=== PATIENT | female | born 1980 | race American Indian/Alaskan Native ===

== ENCOUNTER 2017-01-12 13:22 | Outpatient (CLI) | payer MEDICAID ==
[2017-01-12 14:51] VITALS: BP 125/83
[2017-01-12 17:15] LABS: Bilirubin,Urine NEG (Negative); Blood,Urine NEG (Negative); Ketones,Urine NEG (Negative); Leukocyte Esterase,Urine NEG (Negative); Mucus,Urine 1+ /HPF; Nitrite,Urine NEG (Negative); Urobilinogen,Urine < 2.0 mg/dL (<2.0)
== END 2017-01-12 17:18 | disposition home or self-care (01) ==
LOC: TRG 13:22
PROVIDERS: ATTEND Obstetrics & Gynecology
DX: O09.523 Supervision of elderly multigravida, third trimester (principal); Z3A.36 36 weeks gestation of pregnancy
CPT/HCPCS: 59025; 81001

== ENCOUNTER 2018-10-28 18:43 | Emergency (ER) | payer MEDICAID ==
[2018-10-28] MEDS ORDERED: ZOFRAN IV ONE (19:08)
[2018-10-28] MEDS ORDERED: MORPHINE IV ONE ×2 (19:08→19:42)
--- NOTE | 2018-10-28 19:14 | Emergency Department Report ---
ED Lower Extremity HPI - General Chief Complaint: Extremity Injury, Lower Stated Complaint: LFT ANKLE PAIN/EXTREME Time Seen by Provider: 10/28/18 19:04 Source: patient Mode of arrival: Wheelchair Limitations: Physical Limitation - History of Present Illness Initial Comments: Mrs. Liriano is a 37-year-old female who injured her left ankle while playing in a kiddie pool at home. Her son jumped on her back, her ankle then twisted. The ankel was severely deformed. Her son reduced the ankle immediately. Splint was placed by EMS. She has 10/10 pain. Denies pain in foot knee or hip. MD Complaint: ankle injury -: Sudden, This afternoon Injury: Ankle: Left Type of Injury: inversion, eversion, hyperextension, hyperflexion Place: home Severity: severe Severity scale (0 -10): 10 Improves With: immobilization Worsens With: movement Context: walking, jumping Associated Symptoms: swelling, unable to bear weight - Related Data Previous Rx's Medication Instructions Recorded Last Taken Type HYDROcodone/APAP 10-325 [[place] 1 each PO Q6HR PRN #15 tablet 10/28/18 Unknown Rx 10/325] Allergies Allergy/AdvReac Type Severity Reaction Status Date / Time No Known Allergies Allergy Verified 10/28/18 18:44 ED Review of Systems ROS: Stated complaint: LFT ANKLE PAIN/EXTREME Other details as noted in HPI Constitutional: denies: fever, malaise Skin: denies: rash, lesions, change in color, change in hair/nails Neurological: denies: numbness, paresthesias ED Past Medical Hx - Past Medical History Previous Medical History?: Yes Hx Hypertension: No Hx Diabetes: No Hx Deep Vein Thrombosis: No Hx Renal Disease: No Hx Sickle Cell Disease: No Hx Seizures: No Hx Asthma: No Hx HIV: No - Social History Smoking Status: Never Smoker - Medications Home Medications: Home Medications Medication Instructions Recorded Confirmed Last Taken Type HYDROcodone/APAP 10-325 [[place] 1 each PO Q6HR PRN #15 tablet 10/28/18 Unknown Rx 10/325] ED Physical Exam - General Limitations: No Limitations General appearance: alert, in no apparent distress - Head Head exam: Present: atraumatic, normocephalic - Eye Eye exam: Present: normal appearance - ENT ENT exam: Present: mucous membranes moist - Neck Neck exam: Present: normal inspection - Respiratory Respiratory exam: Absent: respiratory distress - Expanded Lower Extremity Exam Left Hip exam: Present: normal inspection, full ROM Upper Leg exam: Present: normal inspection, full ROM Knee exam: Present: normal inspection, full ROM Ankle exam: Present: tenderness, swelling Foot/Toe exam: Present: normal inspection, full ROM Neuro vascular tendon exam: Present: no vascular compromise. Absent: pulse deficit, abnormal cap refill, motor deficit, sensory deficit, tendon deficit, pallor - Neurological Exam Neurological exam: Present: alert, oriented X3 - Psychiatric Psychiatric exam: Present: normal affect, normal mood ED Lower Extremity MDM - Radiology Data Radiology results: report reviewed, image reviewed interpreted by me: Left ankle radiographs 3 views: Displays distal left fibular fracture with widening mortise - Medical Decision Making Mrs. Liriano presents with displaced unstable left fibular fracture closed neurovascular intact. Left posterior splint was applied to the left lower extremity under my supervision. After application the extremity was neurovascularly intact with acceptable alignment. Provided crutches. Prescription for [place]. Referred to orthopedic surgeon. Critical care attestation.: If time is entered above; I have spent that time in minutes in the direct care of this critically ill patient, excluding procedure time. ED Disposition Clinical Impression: Closed fracture of distal end of left fibula Disposition: - TO HOME OR SELFCARE Is pt being admited?: No Does the pt Need Aspirin: No Condition: Stable Instructions: Ankle Fracture (ED), Splint Care (ED) Prescriptions: HYDROcodone/APAP 10-325 [[place] 10/325] 1 each PO Q6HR PRN #15 tablet PRN Reason: Pain Referrals: JOEY PERKINS MD [Staff Physician] - 3-5 Days
--- NOTE | 2018-10-28 20:00 | XRay Report ---
PROCEDURE: XR ANKLE 3+V LT TECHNIQUE: Left ankle 3 views HISTORY: LEFT ANKLE PAIN AND SWELLING COMPARISONS: FINDINGS: There is acute oblique fracture of the lateral malleolus with posterior lateral displacement of the d istal fragment. No additional acute fractures are identified. Remaining joint spaces are unremarkable . IMPRESSION: Acute displaced lateral malleolar fracture. This document is electronically signed by Luis Maldonado MD., Oct 28 2018 07:58:23 PM ET
[2018-10-28] MEDS ORDERED: PERCOCET 5/325 PO ONE (20:32)
[2018-10-28 22:43] VITALS: BP 147/111
== END 2018-10-28 21:05 | disposition home or self-care (01) ==
LOC: ED 18:43
DX: S82.432A Displaced oblique fracture of shaft of left fibula, initial encounter for closed fracture (principal); W50.2XXA Accidental twist by another person, initial encounter; Y93.89 Activity, other specified; Y92.098 Other place in other non-institutional residence as the place of occurrence of the external cause; Y99.8 Other external cause status
CPT/HCPCS: 29515; 73610; 96374; 96375; 99284; J2270; J2405

== ENCOUNTER 2018-11-02 11:07 | Emergency (ER) | payer MEDICAID ==
--- NOTE | 2018-11-02 11:17 | Emergency Department Report ---
Blank Doc - Documentation Documentation: 37 y o female returns to ED s/p reinjuring her fractured ankle after slip and f all while using her crutches this am no loc xr ankle ankle in cast ACC eval
--- NOTE | 2018-11-02 12:07 | XRay Report ---
PROCEDURE: XR ANKLE 3+V LT TECHNIQUE: 3 views of the left ankle. HISTORY: pain/fracture COMPARISON: None FINDINGS: There is an oblique distal fibular fracture with lateral displacement of the distal fibular fragment and the talus. There is diffuse soft tissue swelling about the ankle. IMPRESSION: Laterally displaced Donald B fracture of the distal fibula. This document is electronically signed by Marcie Sena MD., November 02 2018 01:05:47 PM ET
--- NOTE | 2018-11-02 12:21 | Emergency Department Report ---
ED Lower Extremity HPI - General Chief Complaint: Extremity Injury, Lower Stated Complaint: LT ANKLE SEVERE PAIN Time Seen by Provider: 11/02/18 11:15 Source: patient Mode of arrival: Wheelchair Limitations: No Limitations - History of Present Illness Initial Comments: Patient reported that she fell and injured her left ankle and was here on Sunday and had splint placed and they gave her crutches and reported that she follow again today and her ankle and her foot is swollen. Pain is 8/10 throbbing and achy in. Pain is worse with movement and better with rest. She says she has taken Motrin and they have given her some pain medicine but she only has a few left. She says she had to take the splint off because when she fell. Came apart. Patient reports that she has an appointment with orthopedic doctor on the . MD Complaint: ankle injury Injury: Ankle: Left (left ankle) Type of Injury: other (fall) Place: street/outdoors Severity: severe Improves With: NSAID Worsens With: weight bearing, movement, palpation Context: fall Associated Symptoms: swelling, unable to bear weight. denies: snap/pop sensation, numbness, tingling Treatments Prior to Arrival: NSAIDS - Related Data Previous Rx's Medication Instructions Recorded Last Taken Type HYDROcodone/APAP 10-325 [[place]thel 1 each PO Q6HR PRN #15 tablet 10/28/18 Unknown Rx 10/325] Acetaminophen/Codeine [Tylenol 1 tab PO Q6H PRN #14 tab 11/02/18 Unknown Rx /Codeine # 3 tab] Ibuprofen [Motrin] 800 mg PO Q8HR PRN #12 tablet 11/02/18 Unknown Rx Allergies Allergy/AdvReac Type Severity Reaction Status Date / Time No Known Allergies Allergy Verified 11/02/18 11:09 ED Review of Systems ROS: Stated complaint: LT ANKLE SEVERE PAIN Other details as noted in HPI ED Past Medical Hx - Past Medical History Previous Medical History?: No Hx Hypertension: No Hx Diabetes: No Hx Deep Vein Thrombosis: No Hx Renal Disease: No Hx Sickle Cell Disease: No Hx Seizures: No Hx Asthma: No Hx HIV: No - Surgical History Hx Cholecystectomy: Yes - Social History Smoking Status: Never Smoker Substance Use Type: None - Medications Home Medications: Home Medications Medication Instructions Recorded Confirmed Last Taken Type HYDROcodone/APAP 10-325 [Ethel 1 each PO Q6HR PRN #15 tablet 10/28/18 Unknown Rx 10/325] Acetaminophen/Codeine [Tylenol 1 tab PO Q6H PRN #14 tab 11/02/18 Unknown Rx /Codeine # 3 tab] Ibuprofen [Motrin] 800 mg PO Q8HR PRN #12 tablet 11/02/18 Unknown Rx ED Physical Exam - General Limitations: No Limitations - Expanded Lower Extremity Exam Left Hip exam: Present: normal inspection, full ROM. Absent: tenderness Upper Leg exam: Present: normal inspection, full ROM. Absent: tenderness Knee exam: Present: normal inspection, full ROM. Absent: tenderness Lower Leg exam: Present: normal inspection, full ROM. Absent: tenderness Ankle exam: Present: tenderness, swelling. Absent: full ROM (Limited range of motion), abrasion, laceration, ecchymosis, deformity, crepidus, dislocation Foot/Toe exam: Present: full ROM, tenderness, swelling. Absent: abrasion, laceration, ecchymosis, deformity, crepidus, dislocation, erythema, amputation, puncture wound, foreign body, calcaneal tenderness, tenderness at base of 5th metatarsal, nail avulsion, subungual hematoma Neuro vascular tendon exam: Present: no vascular compromise Gait: Positive: unable to bear weight - Back Exam Back exam: Present: normal inspection, full ROM. Absent: tenderness, paraspinal tenderness, vertebral tenderness, rash noted - Neurological Exam Neurological exam: Present: alert, oriented X3 - Psychiatric Psychiatric exam: Present: normal affect, normal mood - Skin Skin exam: Present: warm, dry, intact. Absent: rash ED Course Vital Signs 11/02/18 11:15 Temperature 98.3 F Pulse Rate 82 Respiratory 20 Rate Blood Pressure 152/119 O2 Sat by Pulse 98 Oximetry ED Lower Extremity MDM - Radiology Data Radiology results: report reviewed Findings [facility] [address] [address] XRay Report Signed Patient: ROXY MORRIS MR#: [id number] : 1980 Acct:[id number] Age/Sex: 37 / F ADM Date: 11/02/18 Loc: ED Attending Dr: Ordering Physician: CATARINA CHIRINOS Date of Service: 11/02/18 Procedure(s): XR ankle 3+V LT Accession Number(s): [id number] cc: CATARINA CHIRINOS Fluoro Time In Minutes: PROCEDURE: XR ANKLE 3+V LT TECHNIQUE: 3 views of the left ankle. HISTORY: pain/fracture COMPARISON: None FINDINGS: There is an oblique distal fibular fracture with lateral displacement of the distal fibular fragment and the talus. There is diffuse soft tissue swelling about the ankle. IMPRESSION: Laterally displaced Donald B fracture of the distal fibula. This document is electronically signed by Marcie Sena MD., November 02 2018 01:05:47 PM ET Transcribed By: JOHAN Dictated By: MARCIE SENA MD Electronically Authenticated By: MARCIE SENA MD Signed Date/Time: 11/02/18 1207 DD/ 1146 TD/TT: 11/02/18 1146 Critical care attestation.: If time is entered above; I have spent that time in minutes in the direct care of this critically ill patient, excluding procedure time. ED Disposition Clinical Impression: Fracture of ankle, closed Qualifiers: Encounter type: subsequent encounter Laterality: left Fracture healing: with nonunion Qualified Code(s): S82.892K - Other fracture of left lower leg, subsequent encounter for closed fracture with nonunion Pain, joint, ankle and foot Qualifiers: Laterality: left Qualified Code(s): M25.572 - Pain in left ankle and joints of left foot Disposition: DC-01 TO HOME OR SELFCARE Is pt being admited?: No Does the pt Need Aspirin: No Condition: Stable Instructions: Ankle Fracture (ED), Musculoskeletal Pain (ED), Splint Care (ED), RICE Therapy (ED) Additional Instructions: Is keep appointment with your orthopedic doctor regarding ankle fracture See discharge instruction Rice therapy and splint care take Motrin for mild pain and Tylenol No. 3 for Referrals: [facility] [Outside] - 11/05/18 JOEY PERKINS MD [Staff Physician] - 3-5 Days Forms: Work/School Release Form(ED)
[2018-11-02] MEDS ORDERED: IBUPROFEN PO ONE (12:33)
[2018-11-02 14:56] VITALS: BP 172/80
== END 2018-11-02 14:55 | disposition home or self-care (01) ==
LOC: ED 11:07
DX: S82.892K Other fracture of left lower leg, subsequent encounter for closed fracture with nonunion (principal); M25.572 Pain in left ankle and joints of left foot; X58.XXXD Exposure to other specified factors, subsequent encounter